=== PATIENT | female | born 1995 | race African-American/Black ===

== ENCOUNTER 2017-04-02 12:59 | Emergency (ER) | payer BC ==
[~2017-04-02] VITALS: Ht 175.3 cm; Wt 62.0 kg
[~2017-04-02 12:59] MED LIST: IBUP-1542 PO; TRAM50TA2 PO
[2017-04-02 13:03] VITALS: Ht 175.3 cm; Wt 62.0 kg
[2017-04-02] MEDS ORDERED: LORAZEPAM 2 MG INJ IM ONE (13:30)
[2017-04-02] MEDS ORDERED: LORA1TAB PO (13:38)
--- NOTE | 2017-04-02 13:47 | ERD ---
ER Documentation Chief Complaint Date/Time DATE: 04/02/17 TIME: 13:45 Chief Complaint anxiety panic attack HPI 20-year-old female with history of anxiety comes to the emergency department with a panic attack that started this afternoon prior to arrival during class. She states that she was sitting in class and felt a knot in her stomach millimeter nauseous and she went to [facility] and took a prescription Ativan 1 mg, she states that it did not work and therefore came to the emergency department. She denies any suicidal thoughts, or thoughts of hurting others. ROS All systems reviewed and are negative except as per history of present illness. Medications Home Meds Active Scripts Lorazepam* (Lorazepam*) 1 Mg Tablet, 1 MG PO Q8, #10 TAB Prov:CAMERON WHITFIELD PA-C 04/02/17 Tramadol HCl (Tramadol HCl) 50 Mg Tab, 50 MG PO Q6 Y for PAIN, #10 TAB Prov:CRYSTAL GOULD. 09/09/15 Ibuprofen* (Motrin*) 600 Mg Tab, 600 MG PO Q6H Y for PAIN AND OR ELEVATED TEMP, #20 Prov:CRYSTAL GOULD. 09/09/15 Allergies Allergies: Coded Allergies: No Known Allergy (Unverified , 07/12/14) PMhx/Soc Medical and Surgical Hx: pt denies Medical Hx, pt denies Surgical Hx Hx Alcohol Use: No Hx Substance Use: No Hx Tobacco Use: No Smoking Status: Never smoker Physical Exam Vitals Vital Signs Date Time Temp Pulse Resp B/P Pulse Ox O2 Delivery O2 Flow Rate FiO2 04/02/17 13:03 98.2 100 22 123/68 100 Physical Exam General: Extremely anxious, tachypneic, tearful. HEENT: Head is normocephalic, atraumatic. No scleral icterus. Neck: Supple. Nontender. Lungs: Clear to auscultation. Normal air movement. Heart: Regular rate and rhythm. S1 and S2 are normal. No murmurs, gallops, or rubs. Abdomen: Soft, nontender, nondistended. Bowel sounds are normoactive. Extremities: No clubbing or cyanosis. Normal pulses. Moving extremities x 4. No weakness. Neurologic: Alert and oriented 3. No focal deficits. Skin: Normal turgor. No rash or lesions. Results 24 hrs Current Medications Medications (Trade) Dose Ordered Sig/Angeles Route PRN Reason Start Time Stop Time Status Last Admin Dose Admin Lorazepam (Ativan) 1 mg ONCE ONCE IM 04/02/17 13:30 04/02/17 13:31 DC 04/02/17 13:17 Procedures/MDM ED course: She was given Ativan 1 mg IM. She was observed in the emergency department, and approximately 15 minutes. Patient is breathing comfortably, she states that her anxiety is much better. MDM: 21-year-old female comes in with an acute anxiety attack. She was medicated with allergen intramuscularly and she did not respond to the oral Ativan previously. She was observed here in the ER and reports that she is feeling much better. She states that this has happened previously and she does not have a primary care doctor. I have stressed to her that is very important that she has a regular physician follows her, or if she feels like her anxiety is not under control that she may seek psychiatric evaluation as well. She was given a list of outpatient follow-up, which she understands and agrees to. She does present with acute anxiety that was treated, patient responded well and at this time she feels ready to be discharged home. She does not meet any criteria for psychiatric admission, or emergent evaluation at this time. Departure Diagnosis: Primary Impression: Anxiety Condition: Good Patient Instructions: Anxiety Reaction Referrals: [facility] YOU HAVE RECEIVED A MEDICAL SCREENING EXAM AND THE RESULTS INDICATE THAT YOU DO NOT HAVE A CONDITION THAT REQUIRES URGENT TREATMENT IN THE EMERGENCY DEPARTMENT. FURTHER EVALUATION AND TREATMENT OF YOUR CONDITION CAN WAIT UNTIL YOU ARE SEEN IN YOUR DOCTORS OFFICE WITHIN THE NEXT 1-2 DAYS. IT IS YOUR RESPONSIBILITY TO MAKE AN APPOINTMENT FOR FOLOW-UP CARE. IF YOU HAVE A PRIMARY DOCTOR --you should call your primary doctor and schedule an appointment IF YOU DO NOT HAVE A PRIMARY DOCTOR YOU CAN CALL OUR PHYSICIAN REFERRAL HOTLINE AT IF YOU CAN NOT AFFORD TO SEE A PHYSICIAN YOU CAN CHOSE FROM THE FOLLOWING [facility] [address] [facility] [address] [facility] [address] [facility] [address] [facility]. [facility] [address] [facility]. [facility] [address] [facility]. [facility] YOU HAVE RECEIVED A MEDICAL SCREENING EXAM AND THE RESULTS INDICATE THAT YOU DO NOT HAVE A CONDITION THAT REQUIRES URGENT TREATMENT IN THE EMERGENCY DEPARTMENT. FURTHER EVALUATION AND TREATMENT OF YOUR CONDITION CAN WAIT UNTIL YOU ARE SEEN IN YOUR DOCTORS OFFICE WITHIN THE NEXT 1-2 DAYS. IT IS YOUR RESPONSIBILITY TO MAKE AN APPOINTMENT FOR FOLOW-UP CARE. IF YOU HAVE A PRIMARY DOCTOR --you should call your primary doctor and schedule and appointment IF YOU DO NOT HAVE A PRIMARY DOCTOR YOU CAN CALL OUR PHYSICIAN REFERRAL HOTLINE AT . IF YOU CAN NOT AFFORD TO SEE A PHYSICIAN YOU CAN CHOSE FROM THE FOLLOWING [facility] INSTITUTIONS: [facility] [address] [place] [address] [facility] [address] [place], [place] [id number] [place] [address] [address] [place] [address] [facility] URGENT CARE/SPECIALTIES Additional Instructions: Call your primary care doctor TOMORROW for an appointment during the next 1-2 days.See the doctor sooner or return here if your condition worsens before your appointment time. CAMERON WHITFIELD PA-C April 02, 2017 13:47
== END 2017-04-02 14:01 | disposition home or self-care (01) ==
LOC: FTE 12:59
DX: F41.9 Anxiety disorder, unspecified (principal)
CPT/HCPCS: 96372; J2060; Z7502